=== PATIENT | female | born 1985 | race American Indian/Alaskan Native ===

== ENCOUNTER 2019-06-24 05:15 | Inpatient (IN) | payer MEDICAID ==
--- NOTE | 2019-06-23 20:43 | History and Physical Report ---
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 She reports irregular contractions and denies vaginal bleeding or leakage of fluid. She has had care at [facility] since entry into care at 34 wks complicated by late entry to care, trichomonas, GBS positive status, h/o severe anemia s/p blood transfusion after two of her cesareans (non-compliant with hematology referral), genital herpes without lesion or prodrome, and rubella equivocal. She is GBS positive. 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 History: herpes Family/Genetic History: none Social history: no significant social history - Obstetrical History Expected Date of Delivery: 06/29/19 Actual Gestation: 39 Week(s) 2 Day(s) : 6 Para: 4 Hx # Term Pregnancies: 4 Number of Pregnancies: 0 Spontaneous Abortions: 1 Induced : 0 Number of Living Children: 4 Medications and Allergies Allergies Allergy/AdvReac Type Severity Reaction Status Date / Time seafood Allergy Severe Swelling Uncoded 06/24/19 06:41 Home Medications Medication Instructions Recorded Confirmed Last Taken Type Vit-Fe Fumar-FA [ 1 tab PO QDAY #90 tablet 05/01/15 05/22/17 1 Day Ago Rx Vitamin] ~09/15/15 Ferrous Sulfate [Feosol 325 MG tab] 325 mg PO DAILY 05/22/17 05/22/17 Unknown History Review of Systems All systems: negative - Physical Exam Breasts: Positive: deferred Cardiovascular: Regular rate Lungs: Positive: Clear to auscultation Abdomen: Positive: soft (gravid ) Uterus: Positive: enlarged (gravid ) - Obstetrical FHR: auscultation normal Results Result Diagrams: 06/24/19 05:50 All other labs normal. Assessment and Plan A: IUP at 39wks Previous x 3 Severe anemia P: Type and cross for 2 units PRBCs Proceed with repeat section biltateral tubal ligation and other indicated procedures
[~2019-06-24 05:15] MED LIST: BICITRA ORAL LIQD 30ML PO ONE; FAMOTIDINE 20 MG/2 ML INJ IV ONE; LACTATED RINGERS 1,000 ML IV SCH; METOCLOPRAMIDE 10 MG/2 ML INJ IV ONE; OXYTOCIN 20 UNIT/1000ML DRIP 20 UNITS/1,000 ML BAG IV SCH; SODIUM CHLORIDE 0.9% 500 ML 500 ML IV ONE; ceFAZolin/Water 2 GM/20 ML 2 GM/20 ML SYRINGE IV NR
[2019-06-24 06:15] LABS: Basophils % (Auto) 0.4 % (0.0-1.8); Eosinophils # (Auto) 0.1 K/mm3 (0.0-0.4); Eosinophils % (Auto) 1.5 % (0.0-4.3); Hemoglobin 6.9 gm/dl (10.1-14.3); Lymphocytes # (Auto) 1.6 K/mm3 (1.2-5.4); Lymphocytes % (Auto) 28.4 % (13.4-35.0); Mean Corpuscular HGB Conc 34 % (30-34); Mean Corpuscular Volume 96 fl (79-97); Monocytes # (Auto) 0.3 K/mm3 (0.0-0.8); Monocytes % (Auto) 5.8 % (0.0-7.3); Platelet Count 303 K/mm3 (140-440); Red Blood Count 2.07 M/mm3 (3.65-5.03); Red Cell Distribution Width 14.7 % (13.2-15.2)
--- NOTE | 2019-06-24 07:27 | Anesthesia Day of Surgery ---
Anesthesia Day of Surgery - Day of Surgery Patient Examined: Yes Patient H&P Reviewed: Yes Patient is NPO: Yes
--- NOTE | 2019-06-24 07:27 | Anesthesia Consultation ---
Anesthesia Consult and Med Hx Date of service: 06/24/19 - Airway Anesthetic Teeth Evaluation: Good ROM Head & Neck: Adequate Mental/Hyoid Distance: Adequate Mallampati Class: Class II Intubation Access Assessment: Probably Good - Pulmonary Exam CTA: Yes - Cardiac Exam Cardiac Exam: RRR - Pre-Operative Health Status ASA Pre-Surgery Classification: ASA3 Proposed Anesthetic Plan: Spinal - Pulmonary Hx Smoking: Yes Hx Asthma: No COPD: No Hx Pneumonia: No - Cardiovascular System Hx Hypertension: No - Central Nervous System Hx Seizures: Yes (last Sz age 23) Hx Psychiatric Problems: Yes (depression) - Endocrine Hx Renal Disease: No Hx End Stage Renal Disease: No Hx Hypothyroidism: No Hx Hyperthyroidism: No - Hematic Hx Anemia: Yes Hx Sickle Cell Disease: No - Other Systems Hx Alcohol Use: Yes (social) Hx Substance Use: Yes (marijuana, last was 04/07/17) Hx Cancer: No
[2019-06-24] MEDS ORDERED: ONDANSETRON 4 MG/2 ML INJ ONE (10:03)
[2019-06-24] MEDS ORDERED: PHENYLEPHRINE/NS 1,000 MCG/10 ML SYRINGE (OR USE) IV ONE (10:03)
[2019-06-24] MEDS ORDERED: BUPIVACAINE/PF (0.5%) 5 MG/1 ML 30 ML VIAL INFILTRATI ONE (10:03)
[2019-06-24] MEDS ORDERED: KETOROLAC 30 MG/1 ML INJ ONE (10:03)
[2019-06-24] MEDS ORDERED: OXYTOCIN 10 UNIT/1 ML INJ ONE (10:03)
[2019-06-24] MEDS ORDERED: DEXMEDETOMIDINE 200 MCG/2 ML VIAL IV ONE (10:03)
[2019-06-24] MEDS ORDERED: SODIUM CHLORIDE 0.9% IRR 1,500 ML BOTTLE IR ONE (10:54)
[2019-06-24] MEDS ORDERED: WATER FOR IRRIG STERILE 1,500 ML BOTTLE IR ONE (10:54)
[2019-06-24] MEDS ORDERED: NalbUPHINE 10 MG/1 ML INJ IV PRN (11:04)
--- NOTE | 2019-06-24 11:04 | Post Anesthesia Evaluation ---
- Post Anesthesia Evaluation Patient Participated: Yes Airway Patent: Yes Stable Respiratory Function: Yes Nausea/Vomiting: No Temp > 96.8F: Yes Pain Manageable: Yes Adequeate Hydration: Yes Anesthesia Complications: No Block Receding Appropriately: Yes
--- NOTE | 2019-06-24 11:09 | Procedure Note ---
OB Delivery Note - Delivery Date of Delivery: 06/24/19 Surgeon: DAVIN FAIRCHILD Estimated blood loss: 1000cc - Section Preop diagnosis: repeat , desires sterilization Postop diagnosis: same section procedure: section, repeat low transverse, bilateral tubal ligation Disposition: PACU Complications: none Narrative: Please see operative report. - Infant A at 1 minute: 8 at 5 minutes: 9 Infant Gender: Female (2916g (6lb 8oz) @ 1008 am)
--- NOTE | 2019-06-24 11:14 | Operative Report ---
Operative Report Operative Report: Date of procedure: June Preoperative diagnosis: 1) IUP at 39w2d 2)Previous x 3 3) Undesired Fertility 4) Severe Anemia Postoperative diagnosis: Same Procedure: 1) Repeat low transverse section 2) Bilateral tubal ligation via modified [place] method Surgeon: Jacquie Morales M.D. Anesthesia: Regional Findings: 1) Viable female , Apgars 8 and 9, weight 2916g, (6 lb 8 oz) in cephalic presentation 2) Normal-appearing uterus ovaries and tubes Estimated blood loss: 1000 mL IV fluids:1000 mL crystalloid; 2 units PRBCs Urine output: 100 mL, clear at the end of the procedure Drains: Vora to gravity Specimens: Placenta, bilateral fallopian tube segments to pathology Complications: None. Counts correct x 3 Disposition: Stable to PACU Indication for procedure: Pt is a 33 year old -Tunis[place] female at 39w2d with a h/o three prior sections who presents for scheduled repeat section. Operation in detail: After the risks, benefits, alternatives and complications were explained to the patient she gave informed consent for the procedure. She was subsequently taken to the operating room where regional anesthesia was noted to be adequate. She was subsequently placed in the dorsal supine position with leftward tilt and prepped and draped in a normal sterile fashion. heart tones were noted to be in the 120s prior to incision. A timeout was performed. A Pfannenstiel skin incision was made with the knife and carried down to the layer of the fascia with the Bovie. The fascia was incised in the midline and the fascial incision was extended bilaterally with the Bovie. The fascial incision was then stretched. The rectus muscles were then in the midline and partially transected for adequate visualization. The peritoneum was then sharply. The peritoneal incision was extended with good visualization of th e bladder. The peritoneal incision was then stretched. The bladder blade was placed. The vesicouterine peritoneum was grasped with smooth pickups and incised with Metzenbaum scissors. Metzenbaum scissors were used to extend the incision bilaterally. The bladder flap was then created digitally and the bladder blade was replaced. A transverse incision was made in the lower uterine segment with a knife and extended bilaterally with the bandage scissors. The head was delivered with some difficulty followed by shoulders and body. was bulb suctioned at delivery. The cord was clamped and cut and the was handed to NICU staff in attendance. Cord blood was collected. The placenta was then delivered manually. The uterus was then exteriorized and cleared of all clots and debris. The hysterotomy was then reapproximated with 0 Vicryl in a running locked fashion. A second layer of the same suture was used in imbricating fashion. The hysterotomy was inspected and hemostasis was noted. Attention was then turned to the tubal ligation. The right fallopian tube was identified and followed out to the fimbriae, then suture ligated with 0 plain suture via a modified [place] method. The same procedure was followed with the left tube. Both tubal segments were sent to pathology. Hemostasis was noted. The uterus was placed back into the peritoneal cavity. The gutters were irrigated and cleared of all clots and debris. The hysterotomy was again inspected and noted to be hemostatic. Surgicel was placed over the hysterotomy. Intercede was placed over the anterior surface of the uterus. The peritoneum was reapproximated with 2-0 Vicryl in a running fashion incorporating the rectus muscles. The fascia was reapproximated with 0 Vicryl in a running fashion. The skin was reapproximated with 4-0 Vicryl in a subcuticular fashion. The incision was then covered with steri strips and a pressure dressing. The procedure was then ended. The patient tolerated the procedure well and was taken to the PACU in stable condition. All instrument, lap, and needle counts were correct 3. Due to her severe anemia, the patient did receive two units of PRBCs intraope ratively.
[2019-06-24 11:46] LABS: Amphetamine Screen,Urine PRESUMPTIVE NEGATIVE; Benzodiazepines Screen,Urine PRESUMPTIVE NEGATIVE; Cocaine Screen,Urine PRESUMPTIVE NEGATIVE; Methadone Screen,Urine PRESUMPTIVE NEGATIVE; Opiate Screen,Urine PRESUMPTIVE NEGATIVE
[2019-06-24] MEDS ORDERED: KETOROLAC 30 MG/1 ML INJ IV SCH (12:00)
[2019-06-24 12:01] LABS: Cannabinoid Screen,Urine PRESUMPTIVE POSITIVE
[2019-06-24] MEDS ORDERED: miSOPROStol 100 MCG TAB ONE (13:08)
[2019-06-24] MEDS ORDERED: HYDROmorphone 1 MG/1 ML INJ ONE (13:08)
[2019-06-24] MEDS ORDERED: LACTATED RINGERS 1,000 ML ONE (13:20)
[2019-06-24] MEDS ORDERED: LANOLIN/ZINC/DIMETHICONE (LANSINOH) 7 GM TP PRN (13:27)
[2019-06-24] MEDS ORDERED: ONDANSETRON 4 MG/2 ML INJ IV PRN (13:27)
[2019-06-24] MEDS ORDERED: D5W/LACTATED RINGERS 1,000 ML IV SCH (13:27)
[2019-06-24] MEDS ORDERED: OXYTOCIN 20 UNIT/1000ML DRIP 20 UNITS/1,000 ML BAG IV SCH (13:27)
[2019-06-24] MEDS ORDERED: WITCH HAZEL/ GLYCERIN PAD TP PRN (13:27)
[2019-06-24] MEDS ORDERED: IBUPROFEN 800 MG TAB PO PRN (13:27)
[2019-06-24] MEDS ORDERED: NALOXONE 0.4 MG/1 ML INJ IV PRN (13:27)
[2019-06-24] MEDS ORDERED: SIMETHICONE 80 MG CHEW TAB PO PRN (13:27)
[2019-06-24] MEDS ORDERED: MAGNESIUM HYDROXIDE (MOM) ORAL LIQD UDC PO PRN (13:27)
[2019-06-24] MEDS ORDERED: SODIUM CHLORIDE 0.9% 500 ML 500 ML IV SCH ×2 (13:46→23:45)
[2019-06-24 14:27] LABS: Hematocrit 22.8 % (30.3-42.9); Hemoglobin 7.8 gm/dl (10.1-14.3); Mean Corpuscular HGB Conc 34 % (30-34); Mean Corpuscular Volume 94 fl (79-97); Platelet Count 234 K/mm3 (140-440); Red Blood Count 2.42 M/mm3 (3.65-5.03); Red Cell Distribution Width 15.7 % (13.2-15.2)
[2019-06-24 14:37] LABS: INR 1.01 (0.87-1.13)
[2019-06-24 14:38] LABS: Partial Thromboplastin Time 31.5 Sec. (24.2-36.6)
[2019-06-24 15:51] LABS: Hematocrit 21.3 % (30.3-42.9); Hemoglobin 7.4 gm/dl (10.1-14.3)
[2019-06-24] MEDS: ceFAZolin/NS 1 GM/50 ML 1 GM/50 ML BAG IV SCH ×2 (16:48→23:50)
[2019-06-24] MEDS: KETOROLAC 30 MG/1 ML INJ IV SCH ×2 (16:48→23:49)
[2019-06-24] MEDS: ACETAMINOPHEN 325 MG TAB PO SCH ×2 (16:49→23:47)
[2019-06-24] MEDS: MORPHINE 2 MG/1 ML INJ IV PRN (21:00)
[2019-06-24 23:13] LABS: Hemoglobin 6.8 gm/dl (10.1-14.3); Mean Corpuscular HGB Conc 36 % (30-34); Mean Corpuscular Volume 92 fl (79-97); Platelet Count 225 K/mm3 (140-440); Red Blood Count 2.07 M/mm3 (3.65-5.03); Red Cell Distribution Width 15.4 % (13.2-15.2)
[2019-06-24 23:26] LABS: Hematocrit 19.1 % (30.3-42.9)
[2019-06-24] MEDS: FERROUS SULFATE 325 MG TAB PO SCH (23:48)
[2019-06-25] MEDS: diphenhydrAMINE 50 MG CAP PO PRN (00:05)
[2019-06-25] MEDS: MORPHINE 2 MG/1 ML INJ IV PRN ×3 (01:22→17:02)
[2019-06-25] MEDS ORDERED: TETANUS,DIPH,PERTUSS(ACELL) VACCINE 0.5 ML SYRINGE IM ONE (06:00)
[2019-06-25] MEDS: KETOROLAC 30 MG/1 ML INJ IV SCH (08:13)
--- NOTE | 2019-06-25 08:24 | Progress Note ---
Assessment and Plan POD1 s/p repeat c/s and BTL Severe anemia s/p 4U PRBC- recheck hgb/hct Vital signs stable Anticipate d/c to home on POD3 Subjective - Subjective Date of service: 06/25/19 Principal diagnosis: s/p repeat c/s and BTL Interval history: Pt is POD1 post repeat c/s and BTL. She has received 4 units of PRBC due to severe anemia. Patient reports: appetite normal, pain well controlled, flatus, other (Vora and SCDs in place) : doing well, bottle feeding Objective - Vital Signs Latest vital signs: Vital Signs Temp Pulse Resp Resp BP BP Pulse Ox 06/25/19 04:44 98.7 F 62 20 115/84 06/25/19 04:27 98.4 F 66 18 117/79 98 06/25/19 04:14 98.4 F 66 18 117/79 98 06/25/19 03:45 98.2 F 62 18 126/82 98 06/25/19 03:44 98.2 F 62 18 126/82 98 06/25/19 03:14 98.0 F 62 20 117/85 06/25/19 02:59 97.7 F 61 20 113/71 06/25/19 02:45 99.0 F 61 20 128/85 06/25/19 02:41 98.3 F 65 20 130/71 06/25/19 02:20 98.1 F 65 18 124/75 06/25/19 01:50 98.9 F 64 20 124/75 06/25/19 01:20 98.0 F 58 L 21 138/87 06/25/19 00:50 98.5 F 64 20 137/86 06/25/19 00:35 98.4 F 60 20 142/85 06/24/19 23:30 98.7 F 62 16 146/79 06/24/19 20:20 20 06/24/19 19:30 98.8 F 62 18 137/88 06/24/19 17:25 98.1 F 66 20 129/66 06/24/19 14:58 62 22 116/76 100 06/24/19 14:00 82 20 123/85 100 06/24/19 12:30 97.5 F L 56 L 20 142/86 100 06/24/19 12:25 97.5 F L 55 L 18 147/93 100 06/24/19 12:15 62 18 137/87 100 06/24/19 12:10 97.5 F L 55 L 18 147/93 100 06/24/19 11:50 97.3 F L 55 L 16 141/93 100 06/24/19 11:45 97.3 F L 55 L 18 137/78 100 06/24/19 11:35 55 L 18 143/95 100 06/24/19 11:20 96.7 F L 53 L 20 139/80 100 06/24/19 11:15 54 L 20 131/88 100 06/24/19 11:10 53 L 20 134/88 100 06/24/19 11:05 58 L 20 123/84 100 06/24/19 11:00 61 19 120/81 100 06/24/19 10:56 96.7 F L 68 19 115/80 100 06/24/19 08:27 90 103/56 Intake and Output 06/24/19 06/25/19 06/25/19 23:59 07:59 15:59 Intake Total 710 550 Output Total 1700 1802 Balance -990 -1252 Intake: IV 50 ANCEF/NS 1 GM/50 ML 1 gm 50 In 50 ml @ 100 mls/hr IV Q[facility]H [facility] Rx#:[id number] Oral 360 Intake, Free Water 300 300 Blood Product 0 Leukoreduced Red Blood 0 Cells Unit [id number] Leukoreduced Red Blood 0 Cells Unit [id number] Other 250 Leukoreduced Red Blood 250 Cells Unit [id number] Output: Urine 1700 1800 Indwelling Catheter 1700 1800 Pad Count 2 Other: Total, Intake Amount 360 Total, Output Amount 900 800 - Exam Lungs: Present: Normal air movement Abdomen: Present: soft Uterus: Present: firm, fundal height below umbilicus Extremities: Present: normal Incision: Present: dressed - Labs Labs: Abnormal lab results 06/24/19 06/24/19 06/24/19 Range/Units 05:50 13:37 15:21 WBC (4.5-11.0) K/mm3 RBC 2.42 L (3.65-5.03) M/mm3 Hgb 7.8 L 7.4 L (10.1-14.3) gm/dl Hct 22.8 L 21.3 L (30.3-42.9) % MCH (28-32) pg MCHC (30-34) % RDW 15.7 H (13.2-15.2) % Crossmatch See Detail 06/24/19 Range/Units 22:59 WBC 12.4 H (4.5-11.0) K/mm3 RBC 2.07 L (3.65-5.03) M/mm3 Hgb 6.8 L (10.1-14.3) gm/dl Hct 19.1 L* (30.3-42.9) % MCH 33 H (28-32) pg MCHC 36 H (30-34) % RDW 15.4 H (13.2-15.2) % Crossmatch
[2019-06-25 09:41] LABS: Hematocrit 24.8 % (30.3-42.9); Hemoglobin 8.7 gm/dl (10.1-14.3)
[2019-06-25] MEDS: FERROUS SULFATE 325 MG TAB PO SCH ×2 (10:04→22:20)
[2019-06-25] MEDS: oxyCODONE /ACETAMINOPHEN 5-325MG TAB PO PRN ×3 (10:04→20:01)
[2019-06-25] MEDS ORDERED: MEASLES, MUMPS & RUBELLA 12,500 UNIT/0.5 ML VACCINE SUB-Q ONE (11:15)
[2019-06-25] MEDS: FAMOTIDINE 20 MG TAB PO SCH (17:07)
[2019-06-25 21:19] LABS: Hematocrit 22.7 % (30.3-42.9); Hemoglobin 8.2 gm/dl (10.1-14.3)
--- NOTE | 2019-06-26 06:30 | Progress Note ---
Assessment and Plan A/P POD2 repeat csec and btl s/p PP hemorrhage s/p blood transfusion of 4 U stable consider d/c home tomorrow Subjective - Subjective Date of service: 06/26/19 Principal diagnosis: s/p repeat c/s and BTL Patient reports: appetite normal, voiding normally, pain well controlled, flatus [place]: doing well Objective - Vital Signs Latest vital signs: Vital Signs Temp Pulse Resp BP BP Pulse Ox 06/26/19 00:24 98.4 F 70 20 122/67 97 06/25/19 16:10 63 138/90 100 06/25/19 15:10 97.9 F 64 18 130/70 06/25/19 08:45 98.2 F 61 18 106/70 Intake and Output 06/25/19 06/25/19 06/26/19 15:59 23:59 07:59 Intake Total 360 240 120 Output Total 1402 Balance -1042 240 120 Intake: Oral 360 240 120 Output: Urine 1400 Indwelling Catheter 600 Void 800 Pad Count 2 Other: Total, Intake Amount 120 240 120 Total, Output Amount 800 # Voids Void 2 1 1 - Exam Breasts: Present: normal Cardiovascular: Present: Regular rate, Normal S1 Lungs: Present: Clear to auscultation, Normal air movement Abdomen: Present: normal appearance, soft, normal bowel sounds. Absent: distention, tenderness, guarding Uterus: Present: normal, firm, fundal height below umbilicus. Absent: bogginess, tenderness Extremities: Present: normal Deep Tendon Reflex Grade: Normal +2 Incision: Present: normal, dry, intact - Labs Labs: Abnormal lab results 06/24/19 06/25/19 06/25/19 Range/Units 05:50 09:00 21:00 Hgb 8.7 L 8.2 L (10.1-14.3) gm/dl Hct 24.8 L 22.7 L (30.3-42.9) % Crossmatch See Detail
[2019-06-26] MEDS: oxyCODONE /ACETAMINOPHEN 5-325MG TAB PO PRN ×2 (07:37→19:35)
[2019-06-26] MEDS: FAMOTIDINE 20 MG TAB PO SCH (10:00)
[2019-06-26] MEDS: FERROUS SULFATE 325 MG TAB PO SCH (10:00)
[2019-06-26] MEDS: diphenhydrAMINE 50 MG CAP PO PRN (19:37)
[2019-06-27] MEDS: oxyCODONE /ACETAMINOPHEN 5-325MG TAB PO PRN ×2 (05:15→10:01)
[2019-06-27] MEDS: FAMOTIDINE 20 MG TAB PO SCH (10:00)
[2019-06-27] MEDS: FERROUS SULFATE 325 MG TAB PO SCH (10:00)
--- NOTE | 2019-06-27 14:06 | Progress Note ---
Assessment and Plan POD 3 s/p LTCS at term. Pt is also s/p transfusion of 4u prbcs. Her hgb is stable at 8.5. Plan for discharge on today. Subjective - Subjective Date of service: 06/27/19 Principal diagnosis: s/p repeat c/s and BTL Patient reports: appetite normal, voiding normally, pain well controlled, ambulating normally : doing well Objective - Vital Signs Latest vital signs: Vital Signs Temp Pulse Resp BP BP Pulse Ox 06/27/19 08:52 98.3 F 61 18 149/92 06/27/19 02:05 98.3 F 64 20 121/76 98 06/26/19 16:57 98.3 F 78 16 127/88 99 Intake and Output 06/26/19 06/27/19 06/27/19 22:59 06:59 14:59 Intake Total 960 480 480 Balance 960 480 480 Intake: Oral 600 480 Intake, Free Water 360 480 Other: Total, Intake Amount 600 480 # Voids Void 4 2 - Exam Breasts: Present: deferred Cardiovascular: Present: Regular rate, Normal S1, Normal S2 Lungs: Present: Clear to auscultation, Normal air movement Abdomen: Present: normal appearance, soft, normal bowel sounds Uterus: Present: normal, firm Extremities: Present: normal Deep Tendon Reflex Grade: Normal +2 Incision: Present: normal, dry, intact
--- NOTE | 2019-06-27 14:09 | Discharge Summary ---
Providers - Providers Date of Admission: 06/24/19 05:15 Date of discharge: 06/27/19 Attending physician: DAVIN FAIRCHILD Primary care physician: DAVIN FAIRCHILD Hospitalization Reason for admission: section Delivery: Procedure: bilateral tubal ligation, repeat low transverse, other (hemorrhage) Procedure details: see op report Episiotomy: none Laceration: none Incision: normal, dry, intact complications: transfusion Discharge diagnosis: IUP at term delivered baby: female Condition at discharge: Good Disposition: DC-01 TO HOME OR SELFCARE Plan - Discharge Medications Prescriptions: Ibuprofen [Motrin] 600 mg PO Q8H PRN #30 tablet PRN Reason: Pain oxyCODONE /ACETAMINOPHEN [Percocet 5/325] 1 tab PO Q4HR #30 tab - Provider Discharge Summary Activity: routine, no sex for 6 weeks, no heavy lifting 4 weeks, no strenuous exercise Diet: routine Instructions: routine Additional instructions: [] Smoking cessation referral if applicable(refer to patient education folder for contact #) [] Refer to [facility]'s [facility] Booklet Call your doctor immediately for: * Fever > 100.5 * Heavy vaginal bleeding ( >1 pad per hour) * Severe persistent headache * Shortness of breath * Reddened, hot, painful area to leg or breast * Drainage or odor from incision. * Keep incision clean and dry at all times and follow doctor's instructions regarding bathing/showering - Follow up plan Follow up: DAVIN FAIRCHILD MD [Primary Care Provider] - 14 Days
[2019-06-27 18:16] VITALS: BP 117/85
== END 2019-06-27 16:25 | disposition home or self-care (01) | DRG 765 ==
LOC: APU 05:15 → OB 13:29
PROVIDERS: ADMIT Obstetrics & Gynecology; ATTEND Obstetrics & Gynecology
PROC: 10D00Z1 Extraction of Products of Conception, Low, Open Approach (ICD-10-PCS; principal; 2019-06-24)
PROC: 0UT70ZZ Resection of Bilateral Fallopian Tubes, Open Approach (ICD-10-PCS; 2019-06-24)
PROC: 30233N1 Transfusion of Nonautologous Red Blood Cells into Peripheral Vein, Percutaneous Approach (ICD-10-PCS; 2019-06-24)
PROC: 3E0234Z Introduction of Serum, Toxoid and Vaccine into Muscle, Percutaneous Approach (ICD-10-PCS; 2019-06-25)
PROC: 3E0134Z Introduction of Serum, Toxoid and Vaccine into Subcutaneous Tissue, Percutaneous Approach (ICD-10-PCS; 2019-06-25)
DX: O99.824 Streptococcus B carrier state complicating childbirth (principal); D62 Acute posthemorrhagic anemia; O34.211 Maternal care for low transverse scar from previous cesarean delivery; O99.02 Anemia complicating childbirth; O33.9 Maternal care for disproportion, unspecified; O99.334 Smoking (tobacco) complicating childbirth; F17.200 Nicotine dependence, unspecified, uncomplicated; O99.344 Other mental disorders complicating childbirth; F32.9 Major depressive disorder, single episode, unspecified; O99.314 Alcohol use complicating childbirth; Z72.89 Other problems related to lifestyle; Z3A.39 39 weeks gestation of pregnancy; Z37.0 Single live birth; Z23 Encounter for immunization; Z91.013 Allergy to seafood; Z79.899 Other long term (current) drug therapy; Z30.2 Encounter for sterilization
CPT/HCPCS: 36415; 80307; 85014; 85018; 85025; 85027; 85610; 85730; 86850; 86900; 86901; 86920; 88302; 93005; 93010; 99406; G0378; C1765; J0690; J1170; J1885; J2270; J2370; J2405; J2590; J2765; J3490; J7040; J7120; P9016